=== PATIENT | male | born 1980 | race Two or more races ===

== ENCOUNTER 2017-02-07 09:55 | Emergency (ER) | payer SELFPAY ==
[2017-02-07] MEDS ORDERED: LACTATED RINGERS 1,000 ML ONE (10:35)
[2017-02-07] MEDS ORDERED: LORAZEPAM 2 MG/ML 1ML SDV ONE (10:36)
[2017-02-07 10:38] LABS: SPECIFIC GRAVITY 1.015 (1.001-1.030); URINE BILIRUBIN NEGATIVE (NEGATIVE); URINE BLOOD TRACE (NEGATIVE); URINE GLUCOSE (UA) NEGATIVE (NEGATIVE); URINE LEUKOCYTE ESTERASE NEGATIVE (NEGATIVE); URINE NITRITE NEGATIVE (NEGATIVE); URINE PROTEIN 1+ (NEGATIVE); URINE UROBILINOGEN 1 mg/dL (0-1 mg/dl)
[2017-02-07 10:39] LABS: URINE APPEARANCE CLEAR; URINE COLOR ORANGE
[2017-02-07 10:48] LABS: URINE BACTERIA 0; URINE EPITHELIAL CELLS 0-1 /hpf; URINE RBC 0-1 /hpf; URINE WBC 0-1 /hpf
[2017-02-07 10:55] LABS: AMPHETAMINES/METHAMPHETAMINES POSITIVE (NEGATIVE); COCAINE NEGATIVE (NEGATIVE); MARIJUANA NEGATIVE (NEGATIVE); METHADONE NEGATIVE (NEGATIVE); OPIATES NEGATIVE (NEGATIVE); TRICYCLIC ANTIDEPRESSANTS NEGATIVE (NEGATIVE)
[2017-02-07 10:57] LABS: ABSOLUTE NEUTROPHIL COUNT 7.3 K/mm3 (1.8-7.7); BASO % 0.2 % (0.2-1.0); EOS % 0.1 % (0.9-2.9); HEMATOCRIT 35.3 % (32.0-52.0); HEMOGLOBIN 11.5 gm/l (14.0-18.0); IMM NEUT% 0.4 % (0-1); LYMPH # 0.5 (1.0-4.8); LYMPH % 6.4 % (15-45); MEAN CORPUSCULAR HEMOGLOBIN 29.6 pg (27.0-31.0); MEAN CORPUSCULAR HGB CONC 32.6 g/dl (33.0-37.0); MEAN PLATELET VOLUME 11.3 fl (7.4-10.4); MONO # 0.5 (0.0-0.8); NEUT % 86.9 % (43-75); PLATELET COUNT 137 K/mm3 (130-400); RED CELL DISTRIBUTION WIDTH 14.6 % (11.5-14.5)
[2017-02-07 11:06] LABS: ALB/GLOB RATIO 1.5 (>1.0); ALBUMIN 4.7 gm/dL (3.5-5.7); MAGNESIUM 1.8 mg/dL (1.9-2.7)
[2017-02-07 11:11] LABS: TROPONIN I < 0.01 ng/ml (0.0-0.06)
[2017-02-07 11:19] LABS: THYROID STIMULATING HORMONE 0.82 uIU/ml (0.34-5.60)
[2017-02-07] MEDS ORDERED: POTASSIUM CHLORIDE 20 MEQ TAB.PRT.SR ONE (11:48)
[2017-02-07] MEDS ORDERED: MAGNESIUM SULFATE 2 G/50 ML 50 ML IV ONE (11:48)
--- NOTE | 2017-02-07 12:26 | RAD ---
WRIST- LEFT 3 VIEWS HISTORY: Wrist pain. COMPARISONS: None. FINDINGS: 3 views of the left wrist were performed demonstrating normal bony mineralization. There is evidence of an abnormal position of the lunate, located volar to the remainder of the carpus as well as its normal articulation with the radius. The radius remains in line with the remaining carpal structures with the appearance most consistent with a lunate dislocation. A definitive fracture is not identified. No focal soft tissue abnormalities are seen. IMPRESSION: 1. Findings consistent with a lunate dislocation. A definitive associated fracture is not identified.
[2017-02-07] MEDS ORDERED: ACETAMINOPHEN 500 MG TABLET ONE (13:47)
== END 2017-02-07 14:53 | disposition short-term general hospital (02) ==
LOC: ED 09:55
DX: R53.1 Weakness (principal); E88.09 Other disorders of plasma-protein metabolism, not elsewhere classified; E87.6 Hypokalemia; E83.42 Hypomagnesemia; R94.5 Abnormal results of liver function studies; F15.90 Other stimulant use, unspecified, uncomplicated
CPT/HCPCS: 83690; 82140; 85025; 82550; 80305; 80053; 80307; 83735; 84443; 84484; 81001; 73110; 96375; 99284; 96361; 96365; 99285; J2060; A9270 ×2; J7120; J3475